=== PATIENT | male | born 1995 | race Asian ===

== ENCOUNTER 2017-02-27 13:49 | Observation (INO) | payer BC ==
[2017-02-27] MEDS ORDERED: HYDROmorphONE/DILAUDID 1 MG/ML SYR IVP ONE ×2 (16:07→17:07)
[2017-02-27] MEDS ORDERED: ONDANSETRON 4 MG/2 ML VIAL IVP ONE (16:07)
[2017-02-27] MEDS ORDERED: NS 1,000 ML IV ONE (16:07)
[2017-02-27 16:17] LABS: % IMMATURE GRANULYOCYTES 0.4 % (0.0-1.1); ABSOLUTE IMMATURE GRANULOCYTES 0.07 10^3/uL (0.00-0.10); ADD DIFF? NO; ADD MORPH? NO; ADD SCAN? NO; ATYPICAL LYMPHOCYTE FLAG 0 (0-99); FRAGMENT RBC FLAG 0 (0-99); HEMATOCRIT 47.9 % (40.0-51.0); HEMOGLOBIN 16.5 g/dL (13.7-17.5); LEFT SHIFT FLG 0 (0-99); LIPEMIA HEMOLYSIS FLAG 90 (0-99); MEAN CELL HEMOGLOBIN 33.1 pg (27.9-34.1); MEAN CELL HEMOGLOBIN CONCENTR. 34.4 g/dL (32.4-36.7); MEAN CELL VOLUME 96.2 fL (81.5-99.8); MEAN PLATELET VOLUME 8.5 fL (8.7-11.7); PLATELET CLUMPS FLAG 0 (0-99); PLATELET COUNT 209 10^3/uL (150-400); RED BLOOD CELL COUNT 4.98 10^6/uL (4.40-6.38); RED CELL DISTRIBUTION WIDTH 11.4 % (11.5-15.2)
--- NOTE | 2017-02-27 16:21 | EDPHY ---
H & P Stated Complaint: RLQ PAIN X 2 DAYS W/ CONSTIPATION Time Seen by Provider: 02/27/17 15:56 HPI/ROS: Chief complaint: Abdominal pain History of present illness: This is a 21-year-old male who presents to the emergency department for evaluation of abdominal pain. Patient reports the onset of symptoms approximately 2 days ago. He initially developed diffuse pain. He felt like he just had an upset stomach. However his pain has worsened. It is now localizing to the right, lower aspect of the abdomen. Worse with any movement. He has had associated mild diarrhea. He denies precipitating factors. He denies alleviating factors. He denies other associated signs or symptoms including no fevers or chills, no nausea or vomiting, no urinary symptoms. He has never had similar. Review of systems: A 10 point review of systems was obtained and other than described above was negative - Personal History Current Tetanus Diphtheria and Acellular Pertussis (TDAP): Unsure - Medical/Surgical History Other PMH: WISDOM TEETH - Social History Smoking Status: Never smoked - Physical Exam Exam: General Appearance: Alert, nontoxic. Eyes: Pupils equal and round no pallor or injection. ENT, Mouth: Mucous membranes moist. Respiratory: There are no retractions, lungs are clear to auscultation. Cardiovascular: Regular rate and rhythm. Gastrointestinal: Bowel sounds are present. Abdomen is tender with point of maximal intensity at McBurney's point. There are peritoneal signs. Neurological: Alert and oriented x4. Strength and sensation intact and symmetrical. Skin: Warm and dry, no rashes. Musculoskeletal: Neck is supple non tender. Extremities are symmetrical, full range of motion. Psychiatric: Patient is oriented X 3, there is no agitation. Constitutional: Initial Vital Signs Temperature (C) 37.2 C 02/27/17 14:37 Heart Rate 78 02/27/17 14:37 Respiratory Rate 16 02/27/17 14:37 Blood Pressure 111/59 L 02/27/17 14:37 O2 Sat (%) 97 02/27/17 14:37 O2 Delivery Mode Room Air Allergies/Adverse Reactions: nut - unspecified Allergy (Verified 02/27/17 14:36) peanut Allergy (Verified 02/27/17 14:36) Home Medications: Medication Instructions Recorded NK [No Known Home Meds] 02/27/17 Medical Decision Making - Diagnostics Imaging Results: Imaging Impressions Abdomen Ultrasound 02/27/17 16:07 Impression: Thickened ascending colon suspicious for colitis. However, the appendix could not be positively identified. Consider CT imaging as clinically directed. Findings discussed with RAMBO Mcneil at 17:25 hour, 02/27/2017. Abdomen CT 02/27/17 17:27 Impression: 1. Severe nonspecific mid ascending colitis with circumferential wall thickening , edema, free fluid extending from the paracolic gutter, Morison's pouch, to the pelvis, possibly representing inflammatory bowel disease or other nonspecific inflammatory/infectious colitis. 2. No evidence of appendicitis, abscess or bowel obstruction. Cosign: Dr. Alfredo Ma Findings and recommendations discussed with Emergency Department physician, Oliverio Rivera PA-C at 1841 hours on February 27, 2017. Final report concurs with initial preliminary interpretation. Imaging: Discussed imaging studies w/ slunk skinner Radiologist ED Course/Re-evaluation: Patient is discussed with my secondary supervising physician Dr. Casper Diamond. Patient presents to the emergency department for abdominal pain. Ultimately it is not entirely clear if this is a colitis or appendicitis. On-call general surgeon Dr. Kelly is consulted, he has seen this patient in the emergency room. Patient is started on Invanz 1 g at his request. He will admit this patient for further evaluation and care. Differential Diagnosis: Included but not limited to appendicitis, colitis, diverticulitis, urinary tract disease, - Data Points Laboratory Results: Laboratory Results 02/27/17 16:10 02/27/17 16:10 02/27/17 02/27/17 02/27/17 16:10 16:10 16:10 WBC 16.29 10^3/uL H 10^3/uL (3.80-9.50) RBC 4.98 10^6/uL 10^6/uL (4.40-6.38) Hgb 16.5 g/dL g/dL (13.7-17.5) Hct 47.9 % % (40.0-51.0) MCV 96.2 fL fL (81.5-99.8) MCH 33.1 pg pg (27.9-34.1) MCHC 34.4 g/dL g/dL (32.4-36.7) RDW 11.4 % L % (11.5-15.2) Plt Count 209 10^3/uL 10^3/uL (150-400) MPV 8.5 fL L fL (8.7-11.7) Neut % (Auto) 77.3 % H % (39.3-74.2) Lymph % (Auto) 13.6 % L % (15.0-45.0) [place] % (Auto) 7.5 % % (4.5-13.0) Eos % (Auto) 1.0 % % (0.6-7.6) Baso % (Auto) 0.2 % L % (0.3-1.7) Nucleat RBC Rel Count 0.0 % % (0.0-0.2) Absolute Neuts (auto) 12.59 10^3/uL H 10^3/uL (1.70-6.50) Absolute Lymphs (auto) 2.22 10^3/uL 10^3/uL (1.00-3.00) Absolute Monos (auto) 1.22 10^3/uL H 10^3/uL (0.30-0.80) Absolute Eos (auto) 0.16 10^3/uL 10^3/uL (0.03-0.40) Absolute Basos (auto) 0.03 10^3/uL 10^3/uL (0.02-0.10) Absolute Nucleated RBC 0.00 10^3/uL 10^3/uL (0-0.01) Immature Gran % 0.4 % % (0.0-1.1) Immature Gran # 0.07 10^3/uL 10^3/uL (0.00-0.10) Sodium 138 mEq/L mEq/L (134-144) Potassium 4.1 mEq/L mEq/L (3.5-5.2) Chloride 100 mEq/L mEq/L (97-110) Carbon Dioxide 22 mEq/l mEq/l (22-31) Anion Gap 16 mEq/L mEq/L (8-16) BUN 12 mg/dL mg/dL (7-23) Creatinine 1.1 mg/dL mg/dL (0.7-1.3) Estimated GFR > 60 Glucose 90 mg/dL mg/dL (70-100) Calcium 9.8 mg/dL mg/dL (8.5-10.4) Urine Color YELLOW Urine Appearance CLEAR Urine pH 6.0 (5.0-7.5) Ur Specific [place] 1.019 (1.002-1.030) Urine Protein NEGATIVE (NEGATIVE) Urine Ketones NEGATIVE (NEGATIVE) Urine Blood NEGATIVE (NEGATIVE) Urine Nitrate NEGATIVE (NEGATIVE) Urine Bilirubin NEGATIVE (NEGATIVE) Urine Urobilinogen 2.0 EU H EU (0.2-1.0) Ur Leukocyte Esterase NEGATIVE (NEGATIVE) Urine Glucose NEGATIVE (NEGATIVE) Medications Given: Discontinued Medications Hydromorphone HCl (Dilaudid) 0.5 mg IVP EDNOW ONE Stop: 02/27/17 16:08 Last Admin: 02/27/17 16:21 Dose: 0.5 mg Hydromorphone HCl (Dilaudid) 0.5 mg IVP EDNOW ONE Stop: 02/27/17 17:08 Last Admin: 02/27/17 17:08 Dose: 0.5 mg Sodium Chloride (Ns) 1,000 mls @ 0 mls/hr IV EDNOW ONE; Wide Open PRN Reason: Protocol Stop: 02/27/17 16:08 Last Admin: 02/27/17 16:22 Dose: 1,000 mls Ertapenem 1 gm/ Sodium (Chloride) 100 mls @ 200 mls/hr IV EDNOW ONE PRN Reason: Protocol Stop: 02/27/17 19:54 Last Admin: 02/27/17 20:10 Dose: 100 mls Ondansetron HCl (Zofran) 4 mg IVP EDNOW ONE Stop: 02/27/17 16:08 Last Admin: 02/27/17 16:22 Dose: 4 mg Departure - Departure Disposition: [facility] Clinical Impression: Abdominal pain Qualifiers: Abdominal location: right lower quadrant Qualified Code(s): R10.31 - Right lower quadrant pain Condition: Fair
[2017-02-27 16:29] LABS: ANION GAP 16 mEq/L (8-16); CALCIUM 9.8 mg/dL (8.5-10.4); CARBON DIOXIDE 22 mEq/l (22-31); CHLORIDE 100 mEq/L (97-110); CREATININE 1.1 mg/dL (0.7-1.3); GLOMERULAR FILTRATION RATE > 60; GLUCOSE 90 mg/dL (70-100); POTASSIUM 4.1 mEq/L (3.5-5.2); SODIUM 138 mEq/L (134-144)
[2017-02-27 16:42] LABS: COLOR YELLOW; LEUKOCYTE ESTERASE,URINE NEGATIVE (NEGATIVE); NITRITE,URINE NEGATIVE (NEGATIVE)
[2017-02-27] MEDS ORDERED: IOPAMIDOL (ISOVUE-300) 100 ML BTL ONE (18:03)
[2017-02-27] MEDS ORDERED: ERTAPENEM 1 GM in NS 100 ML IV ONE (19:25)
[2017-02-27] MEDS ORDERED: HEPARIN 5,000 UNIT/0.5 ML SYR ONE (20:45)
[2017-02-27] MEDS ORDERED: ceFAZolin 1 GM/5 ML SYR ONE (20:46)
--- NOTE | 2017-02-27 21:04 | GHP ---
[f rep st] PREOP HISTORY AND PHYSICAL DATE OF ADMISSION: 02/27/2017 ADMITTING DIAGNOSIS: Acute abdomen, etiology unclear. PLANNED PROCEDURE: Diagnostic laparoscopy/laparotomy with appendectomy. HISTORY: The patient is a 21-year-old male who was practicing rowing a dragon boat with his friends on Monday. They went to eat dinner at approximately 6 at a restaurant. He started feeling poorly just before the food arrived. He complained of back pain, which he attributed to his rowing, and generalized stomach ache. He felt like he had to go to the bathroom, but was unable to. He woke up on Monday morning with his abdominal discomfort. He did not have any appetite on Monday, but did try some Maltese food for breakfast. For lunch, again he was not hungry, and had noodles and [place] broccoli. The pain became progressively worse. It was still generalized. Occasionally it was maximal in the right lower quadrant. He was hungry and for dinner and ate macaroni and cheese. He slept from about 1:30 a.m. to 7 a.m. and woke up. He had diarrhea on both Monday and Monday. His pain on Monday morning was now in the right lower quadrant, but it was occasionally generalized as well. This prompted him to come to the ER for evaluation. He last had water between 12 to 1 p.m. At this point, he is hungry. Has had no prior similar symptoms and he has had no prior abdominal surgery. He has had some nasal congestion, but no other upper respiratory tract symptoms. He has had diarrhea for the last 3 days. There is no history of antibiotic use or recent travel. There is no history of inflammatory bowel disease. SOCIAL HISTORY: He does not smoke. He drinks 1-2 times per month. ALLERGIES: He has an anaphylactic type reaction to nuts and peanuts. MEDICATIONS: He occasionally use uses Flonase for his nasal congestion, but has not used that in the last week. PAST SURGICAL HISTORY: His only surgery has been a wisdom tooth extraction. PAST MEDICAL HISTORY: There is no history of rheumatic fever, tuberculosis, hepatitis, or transfusions. REVIEW OF SYSTEMS: He has had 1 concussion. He has lower braces. He had asthma as a child. He has had left knee pain for the last 5 months and has been told that he has cartilage damage based on MRI results. FAMILY HISTORY: His mother is 56 years old and his father is 57. His father has gout and high blood pressure. He has an older sister who is 27. There are no bleeding disorders, clotting disorders, difficulty with anesthesia in the patient or the family. PHYSICAL EXAMINATION: GENERAL: He is seen lying on the ER [facility]. He has had 2 doses narcotics. Still feeling poorly. HEENT: His skull is normocephalic and atraumatic. He is awake alert and oriented. NECK: Supple. There is no cervical, supraclavicular, axillary or inguinal lymphadenopathy of any significance. LUNGS: Clear to auscultation. CARDIAC: Shows S1, S2 to be normal, with a normally split S2, without murmurs, rubs, or gallops. ABDOMEN: Tender with cough at a 9 and that is located to the right of the hypogastrium in the lower 3rd of the abdomen. He is tender to 3/10 with obturator testing and 5/10 with psoas testing. To palpation, is he is tender as follows: Left upper quadrant 1. Left mid abdomen 1. Left lower quadrant 1. Epigastrium 2. Periumbilical area 2. Suprapubic area 2. Right upper quadrant 3. Right mid abdomen 6. Right lower quadrant 7. He does have a positive Rovsing sign. LABORATORY DATA: His white count is 16.3 with 77% neutrophils, platelets are 209, hematocrit is 47. BUN 12, creatinine 1.1. The CAT scan of his abdomen is difficult to interpret. There is a calcified structure in the right lower quadrant. It is hard to tell whether this is in the cecum or not. There is fluid in the subhepatic space, the subdiaphragmatic space, and in the pelvis. It is difficult to discern exactly where the appendix is. Radiology has gone back and forth trying to decide whether it is acute appendicitis or not. IMPRESSION: My impression is that it is impossible to differentiate acute appendicitis versus a bacterial enteritis at this time. What argues for an enteritis is the diarrhea that has been persistent throughout, and the fact that he is hungry at this point. What argues for appendicitis is the classic abdominal findings and history with progression of the pain At this point, I feel that the most appropriate approach is a diagnostic laparoscopy and an appendectomy will be performed either way. Peritoneal cultures will be obtained. The family understands the diagnostic quandary and agrees to proceed as outlined. /[id number]/MODL MTDD
--- NOTE | 2017-02-27 21:08 | PDANEPAE ---
ANE History of Present Illness abd pain x 2 days ANE Past Medical History - Cardiovascular History Hx Hypertension: No Hx Arrhythmias: No Hx Chest Pain: No Hx Coronary Artery / Peripheral Vascular Disease: No Hx CHF / Valvular Disease: No Hx Palpitations: No - Pulmonary History Hx COPD: No Hx Asthma/Reactive Airway Disease: No Hx Recent Upper Respiratory Infection: No Hx Oxygen in Use at Home: No Hx Sleep Apnea: No - Neurologic History Hx Cerebrovascular Accident: No Hx Seizures: No Hx Dementia: No - Endocrine History Hx Diabetes: No Hypothyroid: No Hyperthyroid: No Obesity: no - Renal History Hx Renal Disorders: No - Liver History Hx Hepatic Disorders: No ANE Review of Systems - Exercise capacity Exercise capacity: >=4 METS METS (RN): 2 METS - Systems Constitutional: Reports: no symptoms Cardiac: Reports: no symptoms Respiratory: Reports: no symptoms Gastrointestinal: Reports: no symptoms Muscolosketal: Reports: no symptoms Skin: Reports: no symptoms ANE Patient History - Allergies Allergies/Adverse Reactions: nut - unspecified Allergy (Verified 02/27/17 14:36) peanut Allergy (Verified 02/27/17 14:36) - Home Medications Home Medications: Fluticasone Nasal [Flonase Nasal [place] (RX)] 1 sprays EACHNARE DAILY PRN [Last Taken Unknown] - NPO status NPO Status: no food or drink >8 hours NPO Since - Liquids (Date): 02/27/17 NPO Since - Liquids (Time): 13:00 NPO Since - Solids (Date): 02/26/17 NPO Since - Solids (Time): 22:00 - Smoking Hx Smoking Status: Never smoked - Alcohol Use Alcohol Use: Rarely ANE Labs/Vital Signs - Labs Result Diagrams: 02/27/17 16:10 02/27/17 16:10 - Vital Signs Blood Pressure: 101/59 Heart Rate: 75 Respiratory Rate: 16 O2 Sat (%): 93 Weight: 68.039 kg ANE Physical Exam - Airway Neck exam: FROM Mallampati Score: Class 1 - Pulmonary Pulmonary: no respiratory distress - Cardiovascular Cardiovascular: regular rate and rhythym - ASA Status ASA Status: I, E ANE Anesthesia Plan Anesthesia Plan: general endotracheal anesthesia
[2017-02-27] MEDS ORDERED: ROCURONIUM 50 MG/5 ML VIAL ONE (21:14)
[2017-02-27] MEDS ORDERED: MIDAZOLAM 2 MG/2 ML VIAL ONE (21:14)
[2017-02-27] MEDS ORDERED: fentaNYL 100 MCG/2 ML INJ ONE ×3 (21:14→22:44)
[2017-02-27] MEDS ORDERED: LIDOCAINE 2% 5 ML SDV ONE (21:14)
[2017-02-27] MEDS ORDERED: PROPOFOL 200 MG/20 ML VIAL ONE (21:14)
[2017-02-27] MEDS ORDERED: MIDAZOLAM 2 MG/2 ML VIAL IVP ONE (21:21)
[2017-02-27] MEDS ORDERED: DEXAMETHASONE 4 MG/ML VIAL ONE (21:39)
[2017-02-27] MEDS ORDERED: ONDANSETRON 4 MG/2 ML VIAL ONE (22:04)
[2017-02-27] MEDS ORDERED: KETOROLAC 30 MG/1 ML SDV ONE (22:04)
[2017-02-27] MEDS ORDERED: SUGAMMADEX SODIUM 200 MG/2 ML VIAL IVP ONE (22:05)
[2017-02-27] MEDS ORDERED: ONDANSETRON 4 MG/2 ML VIAL IVP PRN ×2 (22:06→22:31)
[2017-02-27] MEDS ORDERED: fentaNYL 100 MCG/2 ML INJ IVP PRN (22:06)
[2017-02-27] MEDS ORDERED: NALOXONE HCL 0.4 MG/ML INJ IVP PRN (22:06)
[2017-02-27] MEDS ORDERED: PROMETHAZINE HCL 25 MG/ML INJ IVP PRN (22:06)
[2017-02-27] MEDS ORDERED: HYDROCODONE/APAP 5/325 TAB PO PRN (22:06)
[2017-02-27] MEDS ORDERED: OXYCODONE/APAP 5/325 TAB PO PRN (22:06)
[2017-02-27] MEDS ORDERED: MEPERIDINE 25 MG/ML SYR IVP PRN (22:06)
[2017-02-27] MEDS ORDERED: HYDROmorphONE/DILAUDID 1 MG/ML SYR IVP PRN ×2 (22:06)
--- NOTE | 2017-02-27 22:37 | POSTANESTH ---
Post Anesthetic Evaluation Cardiovascular Status: Normal, Stable Respiratory Status: Normal, Stable Level of Consciousness/Mental Status: Can Participate in Eval Pain Control: Adequate, Prn Tx Ordered Nausea/Vomiting Control: Adequate, Prn Tx Ordered Complications Possibly Related to Anesthesia: None Noted
[2017-02-27] MEDS ORDERED: FLUTICASONE NASAL 120 SPRAYS/16 GM MDI EACHNARE PRN (22:41)
[2017-02-27] MEDS: fentaNYL 100 MCG/2 ML INJ IVP PRN ×2 (22:46→22:56)
--- NOTE | 2017-02-27 22:49 | POSTOPPROG ---
Post Op Note Date of Operation: 02/27/17 Surgeon: Garfield Kelly Anesthesia: GET(General Endotracheal) Pre-op Diagnosis: acute adbomen Post-op Diagnosis: acute unruptured appendicitis Indication: acute adbomen Procedure: laparoscopic appendectomy Findings: acute unruptured appendicitis Inf/Abcess present in the surg proc area at time of surgery?: No EBL: Minimal Total fluids administered: 1500cc since ER admission Complications: none
[2017-02-27] MEDS: LR 1,000 ML IV SCH (23:25)
[2017-02-27] MEDS: HYDROmorphONE/DILAUDID 1 MG/ML SYR IVP PRN (23:30)
[2017-02-28 00:06] VITALS: RESP 16
[2017-02-28] MEDS: KETOROLAC 30 MG/1 ML SDV IVP SCH ×3 (00:12→12:32)
[2017-02-28] MEDS: HYDROmorphONE/DILAUDID 1 MG/ML SYR IVP PRN (02:33)
[2017-02-28] MEDS: ACETAMINOPHEN 500 MG TAB PO SCH ×2 (04:55→15:23)
--- NOTE | 2017-02-28 06:20 | GOP ---
[f rep st] OPERATIVE REPORT DATE OF OPERATION: 02/27/2017 SURGEON: Garfield Kelly MD ANESTHESIA: General endotracheal. PREOPERATIVE DIAGNOSIS: Acute abdomen. POSTOPERATIVE DIAGNOSIS: Acute unruptured appendicitis. PROCEDURE PERFORMED: Laparoscopic appendectomy. FINDINGS: Acute unruptured appendicitis. ESTIMATED BLOOD LOSS: Minimal. INDICATIONS: Acute abdomen. DESCRIPTION OF PROCEDURE: The patient is placed on the operating table in supine position. He is placed under general endotracheal anesthesia. The abdomen was carefully clipped, prepped, and draped. A surgical time-out was carried out and agreed to by all members of the operative team. An oblique left lower quadrant incision is made as is a transverse suprapubic skin incision. The umbilicus is elevated and an infraumbilical curvilinear incision is now inscribed. The dermal incision was completed with Bovie electrocautery. Dissection just below the umbilicus is carried out down to the rectus sheath, which is elevated between 2 Allis clamps. The rectus sheath is incised in the midline. A pursestring of #0 PDS is placed. An 11-12 disposable Tyree trocar is positioned. Intra-abdominal insufflation is carried out to 15 mmHg. The patient is placed in the Trendelenburg position and rotated slightly to the right. A 5 mm port is placed through the left lower quadrant incision and a 5 mm port is placed in the suprapubic incision. There is a dark fluid in the pelvis. This is carefully aspirated. It turns out to be actually yellow and translucent on aspiration. It is sent for culture and Gram stain nonetheless. Irrigation with heparin and Ancef containing irrigant is used throughout the procedure. The cecum is carefully elevated. The appendix with a dilated tip is found draped over the pelvic brim. The mesoappendix is elevated and divided with Harmonic scalpel down to its base on the cecum. The cecum is carefully elevated. The appendix with a cuff of cecum is carefully taken using Endo TENA powered 35 mm stapler. The specimen was placed in an EndoCatch bag and removed. The stapled suture line is inspected and found to be in excellent shape. Photographic documentation has been carried out at both inguinal regions and the gallbladder. The cecum is carefully examined. There is no evidence of what appeared to be a calcified nodule. I do not see any diverticula. Small bowel is carefully run for a distance of 3 feet. There is no mesenteric adenitis nor is there a Meckel 's diverticulum. Irrigation is again carried out. Ports were then removed under direct vision. The pneumoperitoneum was released. A simple suture of #0 PDS is placed side to side in the midline infraumbilical fascial incision. This is tied. The pursestring is now tied. This resulted in excellent closure. Subcutaneous tissue is well irrigated. The skin is closed with interrupted inverted simple sutures of #4-0 Vicryl. Mastisol and Steri-Strips were applied. Band-Aids were positioned. The patient is transferred to recovery in stable and satisfactory condition. FLUIDS: Total fluids since ER admission 1500 cc. /[id number]/MODL MTDD
[2017-02-28 08:20] VITALS: BP 94/57; PULSE 62; TEMP 97.9; O2SAT 96
[2017-02-28] MEDS: LR 1,000 ML IV SCH (10:09)
--- NOTE | 2017-02-28 11:01 | SOAPPROG ---
SOAP Progress Note Assessment/Plan: POD#1 02/28/2017 Assessment: Doing well Plan: Will advance diet and consider discharge at 2 PM today Subjective: I feel better and passing gas Objective: Vital Signs Temp Pulse Resp BP Pulse Ox 36.6 C 62 16 94/57 L 96 02/28/17 08:18 02/28/17 08:18 02/28/17 08:18 02/28/17 08:18 02/28/17 08:18 Microbiology 02/27/17 21:55 Gram Stain - Final Peritoneal Fluid - Aspirate 02/27/17 02/28/17 03/01/17 05:59 05:59 05:59 Intake Total 3360 Output Total 400 Balance 2960 - Time Spent With Patient Time Spent With Patient: 15 - Pending Discharge Pending Discharge Within 24 Hours: Yes Pending Discharge Date: 02/28/17 Pending Discharge Time: 14:00 Physical Exam - Physical Exam General Appearance: WD/WN, alert, no apparent distress EENT: normal ENT inspection Neck: non-tender, full range of motion, supple, normal inspection Respiratory: chest non-tender, lungs clear, normal breath sounds Cardiac/Chest: regular rate, rhythm Abdomen: normal bowel sounds, non-tender, soft, other (incisions well approximated but with minimal serous drainage) Male Genitalia: deferred Rectal: deferred Back: Normal inspection Skin: normal color, warm/dry Lymphatic: no adenopathy Extremities: normal range of motion Neuro/Psych: no motor/sensory deficits, alert, normal mood/affect, oriented x 3 ICD10 Worksheet Patient Problems: Problems Problem Status Onset Abdominal pain Acute
--- NOTE | 2017-02-28 16:16 | GDS ---
[f rep st] DISCHARGE SUMMARY DISCHARGE DIAGNOSIS: Acute unruptured appendicitis. PROCEDURE: Laparoscopic appendectomy. CONDITION ON DISCHARGE: Improved. DISPOSITION: Home. MEDICATIONS: He is to continue his fluconazole for his nasal congestion. He will take Tylenol 1000 mg every 8 hours routinely and Motrin 200 mg every 4 hours routinely. He will use Dilaudid 2 mg ev richard 4 hours as needed for breakthrough pain. DISCHARGE INSTRUCTIONS: He is to shower only for the next 3 weeks. He is to keep his Steri-Strips in place. He is to lift less than 10 pounds. He will take a multivitamin with zinc, copper, and C. He is watch for signs of superficial and deep infections, which are outlined on his discharge form . He is to watch for signs of bacterial overgrowth in stool as manifested by tap water like diarrhe a. He can follow up with Dr. Jarvis Newton' office in the next 2 weeks. He will call on Monday for results of his pathology report. HOSPITAL COURSE: The patient was admitted, taken to the operating room for an acute abdomen of unce rtain etiology. He was found to have an acute but unruptured appendicitis. There was fluid in the peritoneum, which looked transudative. Nonetheless, was sent for cultures. The results are not yet back. He is tolerating clear liquids and will be advanced to a regular diet. This dictation is planned in advance of discharge. I expect him to be able to go home after a regular meal at 2 o'clock this af latosha. /[id number]/MODL
== END 2017-02-28 15:00 | disposition home or self-care (01) ==
LOC: F1N 23:08
PROVIDERS: ADMIT Surgery; ATTEND Surgery
PROC: 3E0337Z Introduction of Electrolytic and Water Balance Substance into Peripheral Vein, Percutaneous Approach (ICD-10-PCS; 2017-02-27)
PROC: 0DTJ4ZZ Resection of Appendix, Percutaneous Endoscopic Approach (ICD-10-PCS; principal; 2017-02-27 21:00)
DX: K35.80 Unspecified acute appendicitis (principal); E86.9 Volume depletion, unspecified
CPT/HCPCS: 44970; 74177; 76705; 96361; 96365; 96375; 96376; 99285; G0378; J1100; J1170; J1335; J1885; J2250; J2405; J2704; J3010; Q9967